=== PATIENT | male | born 1955 | race Caucasian/White ===

== ENCOUNTER → 2025-02-11 07:41 | Outpatient (REF) | payer MEDICARE, OTHER, SELFPAY | LOC: RCS 07:41 | PROVIDERS: ATTENDING PHYSICIAN Internal Medicine Cardiovascular Disease; FAMILY PHYSICIAN Family Medicine | DX: I25.10 Atherosclerotic heart disease of native coronary artery without angina pectoris (principal); R93.1 Abnormal findings on diagnostic imaging of heart and coronary circulation; E78.00 Pure hypercholesterolemia, unspecified | CPT/HCPCS: 93017; 93350 ==

== ENCOUNTER → 2025-02-18 09:33 | Outpatient (REF) | payer MEDICARE, OTHER, SELFPAY ==
[2025-02-18 10:20] LABS: % Basophils 1.2 % (0-2); % Eosinophils 6.2 % (0-6); % Immature Granulocytes 0.5 % (0-0.5); % Lymphocytes 22.4 % (20.5-51.1); % Neutrophils 61.7 % (42.2-75.2); Absolute Basophils 0.1 10^3/uL (0-0.2); Absolute Eosinophils 0.4 10^3/uL (0-0.7); Absolute Lymphocytes 1.5 10^3/uL (1.2-3.4); Absolute Monocytes 0.5 10^3/uL (0.1-0.6); Hematocrit 36.8 % (39.0-52.0); Hemoglobin 12.8 g/dL (13.0-18.0); Mean Corp Hgb Conc. 34.8 g/dL (33.0-37.0); Mean Corpuscular Hgb 30.6 pg (27.0-31.0); Mean Platelet Volume 12.2 fL (7.4-10.4); Nucleated Red Blood Cells % 0 % (-); Platelet Count 151 10^3/uL (130-400); Red Blood Cell Count 4.18 10^6/uL (4.70-6.10); Red Cell Dist. Width 11.9 % (11.5-14.5); White Blood Cell Count 6.5 10^3/uL (4.8-10.8)
[2025-02-18 10:42] LABS: ALT (SGPT) 25 U/L (0-50); AST (SGOT) 28 U/L (17-59); Albumin 4.7 g/dl (3.5-5.0); Alkaline Phosphatase 104 U/L (38-126); Blood Urea Nitrogen 17 mg/dl (9-20); Calcium 9.7 mg/dl (8.4-10.2); Carbon Dioxide 26 mmol/L (22-30); Chloride 106 mmol/L (98-107); Glucose 94 mg/dl (70-99); Potassium 5.1 mmol/L (3.5-5.1); Sodium 140 mmol/L (135-145); Total Bilirubin 0.6 mg/dl (0.2-1.3); Total Protein 7.2 g/dl (6.3-8.2); eGFR 58.73
== END ==
LOC: SDSPAT 09:33
PROVIDERS: ATTENDING PHYSICIAN Internal Medicine Interventional Cardiology; FAMILY PHYSICIAN Family Medicine; REFERRING PHYSICIAN Internal Medicine Cardiovascular Disease
DX: I25.10 Atherosclerotic heart disease of native coronary artery without angina pectoris (principal)
CPT/HCPCS: 36415; 80053; 85025; 93005

== ENCOUNTER 2025-02-19 06:23 | Day surgery (SDC) | payer MEDICARE, OTHER, SELFPAY ==
[2025-02-18 09:41] VITALS: BMI 31.1
[2025-02-19] VITALS (11 sets, daily range): BP systolic 132–166; BP diastolic 54–70
[2025-02-19] MEDS: LOW STRENGTH ASPIRIN 324 MG PO (07:17)
--- NOTE | 2025-02-19 09:24 | ITS.CL.CATH ---
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
Cardiac Catheterization
Procedure Report:
LEFT HEART CATHETERIZATION
Date of Procedure: February 19, 2025
Referring: Dr. Sea Medina
PROCEDURES:
1. Left heart catheterization with coronary and single-plane left ventriculography
INDICATION: This is a 69-year-old gentleman with a past medical history notable for hypertension and exertional chest discomfort. A CT scan was notable for an elevated coronary calcium score and a subsequent stress study was notable for significant
ST segment depression with the stress of exercise with possible anterior hypokinesis. He is now referred for coronary angiography. Patient states that he is experienced chest tightness for about 2 to 3 months and only during periods of physical
exertion. He denies any resting chest discomfort or change in anginal pattern
ACCESS: Right radial artery, 6 Spanish sheath
HEMODYNAMICS : (mmHg)
AO (s/d) : 136/64
LV (s/d) : 145/15
LVEDP : 29
CORONARY FINDINGS
DOMINANCE: Right
LEFT MAIN: 30% ostial narrowing with 70-75% mid to distal left main stenosis
LEFT ANTERIOR DESCENDING: The LAD is moderately calcified. There is proximal 20% stenosis. The remainder of the LAD is widely patent with only minor irregularities. The distal vessel wraps completely around the apex. The first diagonal branch
arises proximally
CIRCUMFLEX: The circumflex is a large-caliber vessel supplying a moderate-sized OM 1 and moderate to large OM 2. The continuation of the circumflex in the AV groove supplies a small posterolateral branch
RIGHT CORONARY ARTERY: The right coronary artery is a dominant vessel supplying a medium size PDA. Only minor irregularities are noted
VENTRICULOGRAPHY: Left ventriculography is performed in an ALFRED projection. The digital single-plane left ventricular ejection fraction is estimated at 65%. No regional wall motion abnormalities are noted
SEDATION: 26 minutes of procedural sedation was utilized. An independent medical device sales representative was present to assist with and help manage the patient's level of consciousness and physiologic status.
RADIATION SUMMARY: Fluoro Time (min): 3.1, Dose (mGy): 316.8, DAP (Gy.cm2) : 23.1
Closure Device: TR band
CONCLUSIONS
1. Significant left main coronary artery disease with good circumflex and LAD target for bypass grafting
2. Preserved LV systolic function
RECOMMENDATIONS
1. Consult CT surgery
Copy to: Dr. Sea Medina, Dr. Ganesh Hickey
== END 2025-02-19 12:00 | disposition home or self-care (01) ==
LOC: CATH 06:23
PROVIDERS: ATTENDING PHYSICIAN Internal Medicine Interventional Cardiology; FAMILY PHYSICIAN Family Medicine; OTHER PHYSICIAN Internal Medicine Cardiovascular Disease
DX: R07.89 Other chest pain (principal); I25.10 Atherosclerotic heart disease of native coronary artery without angina pectoris; I10 Essential (primary) hypertension; E78.5 Hyperlipidemia, unspecified; K21.9 Gastro-esophageal reflux disease without esophagitis; Z87.891 Personal history of nicotine dependence; Z82.49 Family history of ischemic heart disease and other diseases of the circulatory system; Z79.82 Long term (current) use of aspirin
CPT/HCPCS: 99152; 99153; C1894; 93458; Q9967

== ENCOUNTER 2025-03-29 04:35 | Inpatient (IN) | payer MEDICARE, OTHER, SELFPAY ==
[2025-03-18 12:33] VITALS: BMI 32.2
[2025-03-18 13:13] LABS: Hematocrit 38.0 % (39.0-52.0); Hemoglobin 13.3 g/dL (13.0-18.0); Mean Corp Hgb Conc. 35.0 g/dL (33.0-37.0); Mean Corpuscular Volume 88.0 fL (80.0-94.0); Platelet Count 142 10^3/uL (130-400); Red Cell Dist. Width 12.3 % (11.5-14.5)
[2025-03-18 13:18] LABS: Urine Character Clear (Clear)
[2025-03-18 13:27] LABS: INR 0.89; PT 12.6 Sec (11.4-14.6)
[2025-03-18 14:51] LABS: ALT (SGPT) 21 U/L (0-50); AST (SGOT) 25 U/L (17-59); Albumin 5.0 g/dl (3.5-5.0); Alkaline Phosphatase 76 U/L (38-126); Blood Urea Nitrogen 15 mg/dl (9-20); Calcium 9.9 mg/dl (8.4-10.2); Carbon Dioxide 29 mmol/L (22-30); Chloride 102 mmol/L (98-107); Estimated Creatinine Clearance 62 ml/min; Glucose 75 mg/dl (70-99); Potassium 4.9 mmol/L (3.5-5.1); Sodium 138 mmol/L (135-145); Total Protein 7.7 g/dl (6.3-8.2); eGFR 58.73
[2025-03-18 14:52] LABS: Glycohemoglobin (HgbA1c) 5.5 % (4.0-5.6)
--- NOTE | 2025-03-18 15:11 | CM ---
spoke to pt in PAT's, we discussed pre CABG teaching including sternal and driving restrictions. he is prev indep, lives alone in a 2 story homewith a first floor set up and no steps to enter. he has a cane and a walker at home to use if needed. he
has the cardiac educ book, soap and instructions. he is agreeable to a f/u visit from the ct transitional care nurses after dc. plan is for CABG 03/29, cm role explained and all questions answered.
[2025-03-29] VITALS (13 sets, daily range): BP systolic 89–123; BP diastolic 57–80; PULSE 2–85; BMI 30.6
[2025-03-29] MEDS: MAGNESIUM OXIDE 500 MG PO (05:26)
[2025-03-29] MEDS: LOPRESSOR 25 MG PO (05:26)
[2025-03-29] MEDS: PROTONIX 40 MG PO (05:26)
[2025-03-29] MEDS: BACTROBAN 2% OINTMENT 1 APPLIC NASAL ×2 (05:27→20:30)
--- NOTE | 2025-03-29 06:29 | W.CVOR.SURPR ---
CVOR Surgeon Immed Pre Op
-
I have examined this patient prior to performance of the scheduled procedure.
The patient's condition is unchanged from the time of the dictated/written History and
Physical and the patient is able to undergo the scheduled procedure.
CABG +/- MARINA E
[2025-03-29 07:36] LABS: ACT+ - POC 109 Seconds (82-134)
[2025-03-29 07:51] LABS: Urine Character Clear (Clear)
[2025-03-29 09:16] LABS: B.E. - POC -0.5 mmol/L; Glucose - POC 106 mg/dl (70-99); HCO3 - POC 24 mmol/L (21-28); Hematocrit - POC 28 % PCV (42-52); Hemodilution- POC No; Hemoglobin Calculated - POC 9.6; Ionized Calcium - POC 1.19 mmol/L (1.15-1.33); Lactate - POC 1.57 mmol/L (0.36-0.75); O2 Saturation %Calculated-POC 98.3 % (94-98); PCO2 - POC 40 mmHg (35-48); PO2 - POC 110 mmHg (83-108); Potassium - POC 3.9 mmol/L (3.5-5.1); Sodium - POC 139 mmol/L (136-145); Specimen Type - POC Arterial; pH - POC 7.39 (7.35-7.45)
--- NOTE | 2025-03-29 09:25 | CM ---
Reviewed chart. Mr. Celeste is in the operating room today. Prior to admission he resides alone in a two story home without any steps to enter. He has a first floor set up. Prior to admission he was independent with ambulation and adls. He
has a walker and single point cane. He has a prescription plan. Will need to see his functional level post surgery to see if he will have any skilled care needs. Medical work-up in progress. The discharge plan is to return home with a home visit
by the Transitional Care Nurse verses some level of rehab. if indicated when medically stable.
[2025-03-29 09:38] LABS: B.E. - POC 4.2 mmol/L; Glucose - POC 109 mg/dl (70-99); HCO3 - POC 29 mmol/L (21-28); Hematocrit - POC 27 % PCV (42-52); Hemodilution- POC Yes; Hemoglobin Calculated - POC 9.1; Ionized Calcium - POC 1.00 mmol/L (1.15-1.33); Lactate - POC 0.52 mmol/L (0.36-0.75); O2 Saturation %Calculated-POC 100.0 % (94-98); PCO2 - POC 42 mmHg (35-48); PO2 - POC 459 mmHg (83-108); POC Comment CPB; Potassium - POC 6.9 mmol/L (3.5-5.1); Sodium - POC 139 mmol/L (136-145); Specimen Type - POC Arterial; pH - POC 7.45 (7.35-7.45)
[2025-03-29 09:56] LABS: B.E. - POC 5.1 mmol/L; Glucose - POC 135 mg/dl (70-99); HCO3 - POC 29 mmol/L (21-28); Hematocrit - POC 27 % PCV (42-52); Hemodilution- POC Yes; Hemoglobin Calculated - POC 9.3; Ionized Calcium - POC 1.07 mmol/L (1.15-1.33); Lactate - POC 0.88 mmol/L (0.36-0.75); O2 Saturation %Calculated-POC 100.0 % (94-98); PCO2 - POC 41 mmHg (35-48); PO2 - POC 392 mmHg (83-108); POC Comment CPB; Potassium - POC 7.0 mmol/L (3.5-5.1); Sodium - POC 139 mmol/L (136-145); Specimen Type - POC Arterial; pH - POC 7.47 (7.35-7.45)
[2025-03-29 10:13] LABS: ACT+ - POC 883 Seconds (82-134)
[2025-03-29 10:16] LABS: B.E. - POC -2.6 mmol/L; Glucose - POC 126 mg/dl (70-99); HCO3 - POC 22 mmol/L (21-28); Hematocrit - POC 29 % PCV (42-52); Hemodilution- POC Yes; Hemoglobin Calculated - POC 9.7; Ionized Calcium - POC 0.99 mmol/L (1.15-1.33); Lactate - POC 0.85 mmol/L (0.36-0.75); O2 Saturation %Calculated-POC 100.0 % (94-98); PCO2 - POC 35 mmHg (35-48); PO2 - POC 407 mmHg (83-108); POC Comment WARM; Potassium - POC 6.4 mmol/L (3.5-5.1); Sodium - POC 143 mmol/L (136-145); Specimen Type - POC Arterial; pH - POC 7.40 (7.35-7.45)
[2025-03-29 10:22] LABS: ACT+ - POC 126 Seconds (82-134)
[2025-03-29 10:50] LABS: B.E. - POC -1.1 mmol/L; Glucose - POC 114 mg/dl (70-99); HCO3 - POC 24 mmol/L (21-28); Hematocrit - POC 27 % PCV (42-52); Hemodilution- POC Yes; Hemoglobin Calculated - POC 9.0; Ionized Calcium - POC 1.18 mmol/L (1.15-1.33); Lactate - POC 1.14 mmol/L (0.36-0.75); O2 Saturation %Calculated-POC 99.9 % (94-98); PCO2 - POC 42 mmHg (35-48); PO2 - POC 337 mmHg (83-108); POC Comment POST; Potassium - POC 5.6 mmol/L (3.5-5.1); Sodium - POC 145 mmol/L (136-145); Specimen Type - POC Arterial; pH - POC 7.37 (7.35-7.45)
--- NOTE | 2025-03-29 10:50 | W.PN.CT.SURG ---
Addendum entered and electronically signed by Dorian Swenson MD 03/29/25 11:18:
Procedure(s) Performed:
1. Standard Sternotomy with Aortic and Right Atrial Cannulation
2. Internal Mammary Artery Harvesting, Left
3. Coronary artery bypass grafting x 3 (In situ LOPEZ to LAD, Ao to RSVG to high diagonal, Ao to RSVG to largest OM graft/LPL)
4. Endoscopic vein harvesting of right lower extremity
5. Transesophageal echocardiography
6. Placement of Temporary Ventricular Pacing Wires
7. MARINA E (35mm clip, Serial #[id number])
Original Note:
CT Surgery Operative Note
-
CARDIAC SURGERY OPERATIVE REPORT
Preoperative Diagnosis: Multivessel Coronary Artery Disease with distal left main disease
Postoperative Diagnosis: Same
Procedure(s) Performed:
1. Standard Sternotomy with Aortic and Right Atrial Cannulation
2. Internal Mammary Artery Harvesting, Left
3. Coronary artery bypass grafting x 3 (In situ LOPEZ to LAD, Ao to RSVG to high diagonal, Ao to RSVG to largest OM graft/LPL)
4. Endoscopic vein harvesting of right lower extremity
5. Transesophageal echocardiography
6. Placement of Temporary Ventricular Pacing Wires
Date of Surgery: 03/29/2025
Comorbidities:
1. Multivessel coronary disease involving the distal left main
2. Hypertension
3. Hyperlipidemia
4. Morbidly obese with a BMI of 30.6
5. ADHD
6. Osteoarthritis
7. History of tobacco abuse, former smoker since 2021
8. Gout
9. History of hepatitis and Evaristo-Blount virus
10. Rheumatic fever as a child
Attending Surgeon: Dorian Swenson MD, MS
Assistants: Laury Quinteros PA-C (present and necessary to freezer assistant, endoscopic vein harvest, retraction, suction, exposure, suture management, and wound closure under my direction)
Anesthesiology: Delgado Moreno MD and Willis Alfonso CRNA
Scrub and Circulating RNs: Leeann Dewitt, RN, Chencho Coreas RN
Coatings Inspector: Jamila Brambila CCP
Anesthesia: GETA
EBL: per perfusion records
Products: none
CPB Time: 67 minutes
Aortic Cross Clamp Time: 54 minutes
Indication(s) for Procedures: This is a 69-year-old male with multivessel coronary disease involving the distal left main. He has been having some chest discomfort associate with fatigue and shortness of breath on exertion. Given his disease
pattern, he was offered surgical revascularization.
Conduit(s) Quality:
LOPEZ -excellent, skeletonized
RSVG -excellent, uniform with minimal varicosities
Target(s) Quality:
High diagonal-good sized target accounting of 2.0 mm probe easily, the distal margin of this vessel had disease and was unable to be probed into the LAD. The graft at the end had a mean flow 40 cc a minute with a pulsatile index of 2.8
OM -large essentially LPL branch, excellent target, mean flow of approximately 30 to cc a minute with a pulse index of 4.8
LAD -excellent sized target, mean flow of 20 cc a minute with a pulse index of 2.4
Findings: His left ventricular ejection fraction preoperatively was normal at 60% with no significant valve abnormalities. Following surgery his EF remained the same at 60% with no new regional wall motion abnormalities. The LOPEZ was harvested in a
skeletonized fashion. Following bypass grafting, test dose cardioplegia was given down each distal and confirmed patency and hemostasis. Flow probe assessment of each graft was performed at the end of the case and demonstrated all with excellent
mean flows and pulsatility indices. His left atrial appendage verified to be free of any thrombus or debris preoperatively and found to be totally occlusive postoperatively with no residual flow. He did not require any blood products and did not
require any inotropic support.
Description of Procedure: The patient was taken to the operating room. Their identity and procedure to be performed were verified and they were positioned supine on the operating table. Induction via general anesthesia with endotracheal intubation
was performed and central venous access and arterial monitoring were inserted. A preoperative transesophageal echocardiogram was performed to assess cardiac function and valvular function. The patient was then prepped and draped from chin to feet in
a sterile fashion. A preoperative time-out was performed with all members of the team present. A midline chest incision was performed along with median sternotomy. Simultaneous endoscopic access of the right lower extremity for saphenous vein
harvest was obtained along with administration of an initial 5,000 units of IV heparin. A RulTract sternal retractor was positioned to exposure the left internal mammary bed. The mammary was harvested and found to have good flow. A bulldog clamp was
applied to the distal end of the mammary after dividing it. It was wrapped in a papaverine soaked RayTec and replaced back into the left hemithorax. The RulTract was exchanged for a median sternal retractor. The innominate vein was isolated. Full
heparinization was given (a total of 50,000 units). We created a pericardial well. The aortic cannulation site was chosen where it was soft, pliable, and free of calcium. Cannulation was performed with an arterial cannula in the ascending aorta and
a triple-stage venous cannula through the right atrial appendage. The arterial cannula line had an appropriate bounce and correlating pressures with test dosing. Next, a root vent/antegrade cannula was inserted into the ascending aorta. The ACT was
confirmed to be over 400 and retrograde autologous priming was performed before commencing cardiopulmonary bypass. The pulmonary artery was away from the aorta to facilitate a clamp site. The aortic cross-clamp was placed after decreasing
the flow on the bypass and mean arterial pressure. A total of 1.2L initial dose of antegrade Del-Nido cardioplegia solution was given and planned for re-dosing every 75 minutes as necessary. There was rapid electro-mechanical arrest of the heart at
300 cc of cardioplegia. The left ventricle was observed for distention on echocardiogram and manual palpation. Cold slush was placed into a sponge and topically on the RV while we systemically cooled to 34 degrees centigrade. I did replace the
aortic clamp and redosed with additional 200 cc of cardioplegia as I felt the clamp was not occlusive. Regardless, we did achieve myocardial quiescence. Once fully rested the heart was rotated medially and the left atrial appendage was clipped
flush to the base.
I positioned the heart to expose the OM/LPL branch. A tolowa dee-ni' blade was used to expose the coronary and perform the arteriotomy. Coronary Ferrara scissors were used to enlarge the incision. The saphenous vein was trimmed and beveled to an appropriate
size. The distal anastomosis was performed using 7-0 prolene in an end-to-side fashion. Antegrade cardioplegia was administered into the graft. Appropriate hemostasis and flow were confirmed. The graft was measured for length to the aorta and cut.
A suitable site on the high diagonal which was intramyocardial. We dissected and prepared the distal target in a similar fashion. An end-to-side anastomosis was created with a 7-0 prolene. Antegrade cardioplegia was administered into the graft.
Appropriate hemostasis and flow were confirmed. The graft was measured for length to the aorta and cut. A suitable target on the mid/distal left anterior descending was identified. We dissected and prepared the distal target in a similar fashion. We
retrieved the LOPEZ from the chest and created a pericardial opening while being cognizant of the phrenic nerve to facilitate the course of the mammary. The distal end of the mammary was prepped and the underbelly was incised and enlarged with Ferrara
scissors. We verified orientation and length of the ALISSA and found brisk flow. An end-to-side anastomosis was created with a 7-0 prolene. We temporarily released the bulldog clamp on the mammary to inspect flow. Perfusion to the LAD territory was
visualized and hemostasis was confirmed. The bull clamp was replaced on the mammary. The heart was filled and the root was distended with antegrade cardioplegia to make final assessment of graft length and orientation. We created 2 aortotomies using
a #11 blade then a 4.0mm aortic punch. The proximal anastomoses were created in an end-to-side fashion using 6-0 prolene. At the the same time, we re-warmed to 36.5 degrees centigrade. The bulldog clamp was removed from the mammary. Temporary
bipolar ventricular pacing wires were placed on the base of the right ventricle. The patient was placed in a Trendelenburg position and flows on bypass were lowered. The aortic cross clamp was removed and flows were slowly brought back up. All
bypass grafts were inspected and were free from kinking or twisting. The distal and proximal anastomoses appeared hemostatic. Once transesophageal echocardiography appeared satisfactory for de-airing, the flows were temporarily lowered for root
vent removal. After verifying acceptable parameters, we initiated weaning from cardiopulmonary bypass. Once we were off cardiopulmonary bypass, the venous cannula was clamped and removed. A test dose of protamine was administered and the patient was
monitored for any adverse reaction before resuming protamine. Once half of the protamine dose was delivered, pump suckers were turned off and the systolic blood pressure was lowered for aortic decannulation. The aortic cannula was removed and
pursestrings were tied down. All cannulation sites were oversewn with a 4-0 prolene. The mammary bed was inspected and hemostasis was confirmed. Once the mediastinum was hemostatic, 19Fr Chuckie drain was placed in the left pleural cavity and two 24Fr
Chuckie drains were placed within the pericardium. The sternum was approximated with 4 #7 single and 3 #8 double stainless steel wires. Fascia was approximated with #1 vicryl suture. The subcutaneous, dermis and epidermis were closed in layers in a
running fashion. The skin wound was cleansed and dressed.
All instrument, sponge, and needle counts were confirmed to be correct x 2 at the end of the operation. The patient was transferred to the cardiac intensive care unit in critical but stable condition.
I, Dr. Dorian Swenson, was present, scrubbed for, and performed all critical elements of this procedure.
Dorian Swenson MD, MS
Cardiothoracic Surgeon
[facility]
This operative dictation was created using the [employer] dictation system. Please excuse any grammatical, typographical, or 'sound alike' errors
[2025-03-29 11:16] LABS: Glucose - Point of Care 118 mg/dl (70-99)
[2025-03-29] MEDS: ANCEF 10 IV ×2 (11:29)
[2025-03-29] MEDS: NOVOLOG FLEXPEN SC ×2 (11:29→15:43)
[2025-03-29 11:30] LABS: B.E. -2.9 mmol/L; HCO3 23.2 mmol/L (21-28); Hematocrit 29.1 % (39.0-52.0); Hemoglobin 10.4 g/dL (13.0-18.0); O2 Saturation % 99.7 % (94-98); PCO2 45 mmHg (35-48); PO2 106 mmHg (83-108); Platelet Count 109 10^3/uL (130-400); Potassium 5.5 mMOL/L (3.5-5.1); Sodium 137 mMOL/L (136-145)
[2025-03-29] MEDS: NSS 500 IV (11:30)
[2025-03-29] MEDS: CALCIUM GLUCONATE 100 IV ×2 (11:39→15:54)
[2025-03-29 11:46] LABS: INR 1.53; PT 18.7 Sec (11.4-14.6)
[2025-03-29 11:47] LABS: APTT 28.8 Sec (23.4-35.0)
[2025-03-29 11:49] LABS: Blood Urea Nitrogen 14 mg/dl (9-20); Estimated Creatinine Clearance 81 ml/min; Glucose 113 mg/dl (70-99); Magnesium 2.6 mg/dl (1.6-2.3)
--- NOTE | 2025-03-29 12:00 | PTCARENOTE ---
Patient received from CVOR at 1110; Sedated and intubated; NSR on monitor; VSS; Epicardial V wires present with settings VVI 50/5.0/5.0; +1 DP and +2 radial pulses present; Lungs diminished at bases; ETT size 8 positioned and secured at 24 cm right
lip; Ventilator settings SIMV 14/500/5/5 FiO2 40% - adjusted by RT at bedside following ABG results; CTx3 to -20 cm wall suction draining bloody drainage - no air leak, tidaling, or crepitus noted; Hypoactive BS; Nielsen catheter in place draining
clear, yellow urine; Sternal incision glued, approximated, and SUPERVISOR CAB, right groin puncture glued, approximated, and SUPERVISOR CAB, right leg incision wrapped in SUNITHA - CDI; Left A-line in place, SLIC present in right Cordis - all lines zeroed and leveled; #18
PIV present in left forearm; Levo, insulin, and precedex infusing - see nursing flowsheets for further details; iCal repleted x1; see nursing documentation for further details.
[2025-03-29 12:04] LABS: Glucose - Point of Care 168 mg/dl (70-99)
--- NOTE | 2025-03-29 12:12 | CON.INTV ---
Consultation
Consultation Request
Date/Time Consultation Requested: 03/29/2025
Date/Time Consultation Performed: 03/29/2025
Requesting Provider: Dr. Swenson
Performing Provider: Dr. Ajith Baker
Reason for Consultation: Status post coronary artery bypass
Medical History
-
History of Present Illness:
69-year-old man with hypertension, hyperlipidemia, obesity, history of tobacco abuse. Recently evaluated for unstable angina. Had a stress test in January 2025 that showed abnormality. Subsequently underwent cardiac catheterization. Cardiac cath
02/19/2025: Significant left main coronary disease with good targets. Preserved LVEF
CT surgery deemed the patient candidate for revascularization.
Coronary artery bypass underwent on 03/29/2025. Patient transferred to the critical care unit. Critical care team was consulted for postoperative management.
Patient is sedated, mechanical ventilation.
Records reviewed.
Currently comfortable mechanical ventilation settings
Past Medical History
Past Medical History: Other ( See assessment and plan)
Social History
Tobacco: Former Smoker (Quit about 4 years)
Alcohol: Occasional
Family History
Family History: CAD (Father)
Allergies / Home Medications
Allergies
Allergy/AdvReac Type Severity Reaction Status Date / Time
No Known Allergies Allergy Verified 03/15/25 13:02
Home Medications
�Medication �Instructions �Recorded �Confirmed �Last Taken �Type
amlodipine 5 mg tablet 5 mg PO DAILY 02/14/25 03/29/25 03/26/25 History
atorvastatin 80 mg tablet 80 mg PO DAILY 02/14/25 03/29/25 03/28/25 History
coenzyme Q10 100 mg capsule 100 mg PO DAILY 02/14/25 03/29/25 03/22/25 History
(CoQ-10)
multivitamin 1 tab PO DAILY 02/14/25 03/29/25 03/22/25 History
omega 8-qgx-lpv-fish oil 1,000 mg 1 cap PO DAILY 02/14/25 03/29/25 03/22/25 History
(120 mg-180 mg) capsule (Fish Oil)
Joint Dynamic Suppl Cap 1 cap PO DAILY 02/19/25 03/29/25 03/22/25 History
omeprazole 20 mg capsule,delayed 20 mg PO DAILY 02/19/25 03/29/25 03/28/25 History
release
aspirin 325 mg tablet 325 mg PO DAILY 03/15/25 03/29/25 03/27/25 History
turmeric-herbal complex no.278 1 cap PO DAILY 03/15/25 03/29/25 03/22/25 History
valsartan 80 mg tablet 80 mg PO DAILY 03/15/25 03/29/25 03/26/25 History
Review of Systems
-
Unable to Obtain full review of systems at this time due to: Patient Intubation
Vitals / Labs / Diagnostic Testing
Vital Signs
Temp Pulse Resp BP Pulse Ox
95.2 F L 66 16 120/80 97
03/29/25 12:00 03/29/25 12:00 03/29/25 12:00 03/29/25 12:00 03/29/25 12:00
Lab Data
03/29/25 11:15
Laboratory Results
03/29/25
11:15
PT 18.7 H
INR 1.53
APTT 28.8
pH 7.32 L
pCO2 45
pO2 106
HCO3 23.2
O2 Delivery Level
Diagnostic Testing:
Physical Exam
-
HEENT: Normocephalic and Other (ET tube in place without secretion)
Cardiovascular: S1/S2
Respiratory: Clear
GI: Soft and Non Distended
Neurology: Other (Sedated on mechanical ventilation)
Skin: Warm
General: Comfortable
Assessment
-
69-year-old man with past medical history noted, admitted for coronary artery bypass. Surgery underwent on 03/29/2025 without complications. Currently in the critical care unit, we were consulted for postoperative management.
Status postcoronary artery bypass 03/29/2025-Dr. Swenson
Postoperative mechanical ventilation
Postoperative anemia
Conditions present prior admission:
Hyperlipidemia
Hypertension
Obesity
History of tobacco abuse quitting about 4 years ago
GERD
Vitiligo
ADHD
Former smoker
Low-dose CT 09/14/2022-negative for lung nodules.
Assessment and plan:
He is doing well postop-currently on mechanical ventilation and appears comfortable.
ABG reviewed: Adequate oxygenation and ventilation.
Continue SIMV mode with no change
Spontaneous breathing trial per protocol once sedation wears off.
Anemia noted-no evidence of acute bleeding
Follow H&H serially
Hemodynamics -acceptable
Normal renal function
Adequate urinary output
Will follow arterial line a PA catheter hemodynamics
Chest tube with no excessive drainage-no air leak.
Chest x-ray reviewed 03/29/2025: With no pneumothorax or fluid collections.
Remain nothing by mouth
Head of the bed elevation
Glycemic control per protocol
DVT prophylaxis when safe from the surgical perspective.
Critical care statement: A total of 32 minutes of critical care time was provided for this patient today. This includes management of unstable vital signs, evaluation of the patient at bedside, reviewing the patient's pertinent medical records
including ventilator settings, arterial blood gases, radiographs, microbiology, laboratory evaluations and discussion with primary team, critical care nursing, and respiratory therapy.
--- NOTE | 2025-03-29 12:47 | W.PN.CARDCBS ---
Addendum entered and electronically signed by Sea Sabillon MD 03/29/25 15:21:
Attending addendum: Patient seen and examined postoperatively CABG with LOPEZ-LAD, SVG-D, SVG-OM. He remains intubated and sedated. Weaning pressors as tolerated. ECG reviewed.
Original Note:
Today's Communication / Plan
-
Continue post-op care
Impression / Plan
-
PCP: Dr. Hickey
Cardiology: Dr. CHRISTIAN Medina
Impression:
CAD
s/p CABG x 3 (LOPEZ to LAD, RSVG to high diagonal, RSVG to largest OM graft/LPL), MARINA clip 03/29/2025
Hypertension
Hyperlipidemia
h/o gout
Former tobacco abuse
GERD
Plan:
-Noted to have MV CAD with significant left main disease by cardiac catheterization 02/19/2025. s/p CABG x 3 (In situ LOPEZ to LAD, Ao to RSVG to high diagonal, Ao to RSVG to largest OM graft/LPL) 03/29/[address] Swenson
-Seen postoperatively. Remains intubated and sedated, but doing well.
-BP stable off levo. Precedex being weaned.
-Postop EKG reviewed. SR, overall stable compared to prior.
-Overall stable on telemetry without arrhythmia
-Postop hemoglobin stable at 10.4. Continue to follow. No blood products given intra-op.
-K 5.5. Continue to follow
-Continue aspirin, Plavix, and statin.
-Heart rate stable. Continue amiodarone and metoprolol
-Per op report, at the end of procedure his MARINA was verified to be free of any thrombus or debris and was found be totally occlusive with no residual flow.
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
Subjective
Date of Service: March 29, 2025
Remains intubated, sedated.
Objective
Labs:
03/29/25 11:15
Labs
Hgb 10.4 g/dL (13.0-18.0) L 03/29/25 11:15
Hct 29.1 % (39.0-52.0) L 03/29/25 11:15
Plt Count 109 10^3/uL (130-400) L 03/29/25 11:15
PT 18.7 Sec (11.4-14.6) H 03/29/25 11:15
INR 1.53 03/29/25 11:15
APTT 28.8 Sec (23.4-35.0) 03/29/25 11:15
Sodium 138 mmol/L (135-145) 03/18/25 12:43
Potassium 4.9 mmol/L (3.5-5.1) 03/18/25 12:43
BUN 14 mg/dl (9-20) 03/29/25 11:15
Creatinine 1.0 mg/dL (0.7-1.3) 03/29/25 11:15
Glucose 113 mg/dl (70-99) H 03/29/25 11:15
Vital Signs and I&O:
Vital Signs
Temp Pulse Resp BP Pulse Ox
95.2 F L 66 16 120/80 97
03/29/25 12:00 03/29/25 12:00 03/29/25 12:00 03/29/25 12:00 03/29/25 12:00
Vital Signs
Temp Pulse Resp BP Pulse Ox
95.2 F L 66 16 120/80 97
03/29/25 12:00 03/29/25 12:00 03/29/25 12:00 03/29/25 12:00 03/29/25 12:00
Intake & Output
03/27/25 03/28/25 03/29/25 03/30/25
06:59 06:59 06:59 06:59
Intake Total 182.3 / 182.3
Output Total 610 / 610
Balance -427.7 / -427.7
Physical Exam
Physical Exam
GEN: No distress, intubated
HEENT: mmm
LUNGS: CTA anterolaterally, no wheezes/rales
CV: Reg, S1/S2, + rub
EXT: No clubbing, cyanosis, or edema
SKIN: Warm, dry, no rash
[2025-03-29 13:05] LABS: Glucose - Point of Care 127 mg/dl (70-99)
[2025-03-29] MEDS: TYLENOL PO ×2 (13:05→22:25)
--- NOTE | 2025-03-29 13:25 | PTCARENOTE ---
RT in room and patient placed on CPAP breathing trial at 1325. ABG's due at 1355
[2025-03-29 14:11] LABS: Glucose - Point of Care 112 mg/dl (70-99)
[2025-03-29] MEDS: ZOFRAN 4 MG IV (14:21)
[2025-03-29 14:49] LABS: B.E. - POC -0.7 mmol/L; Blood Urea Nitrogen - POC 14 mg/dl (3-120); Chloride - POC 108 mmol/L (96-111); Creatinine - POC 1.13 mg/dl (0.3-1.0); Glucose - POC 121 mg/dl (70-99); HCO3 - POC 22 mmol/L (21-28); Hematocrit - POC 31 % PCV (42-52); Hemodilution- POC Yes; Hemoglobin Calculated - POC 10.6; Ionized Calcium - POC 1.14 mmol/L (1.15-1.33); Lactate - POC 2.99 mmol/L (0.36-0.75); O2 Saturation %Calculated-POC 99.6 % (94-98); PCO2 - POC 30 mmHg (35-48); PO2 - POC 164 mmHg (83-108); Potassium - POC 3.7 mmol/L (3.5-5.1); Sodium - POC 145 mmol/L (136-145); Specimen Type - POC Arterial; pH - POC 7.48 (7.35-7.45)
[2025-03-29 15:04] LABS: Glucose - Point of Care 118 mg/dl (70-99)
--- NOTE | 2025-03-29 15:24 | PTCARENOTE ---
Patient failed 1st CPAP breathing trial - with frequent apnea periods in last 10 minutes of trial and placed back on SIMV at 1407; Patient vomited bile and coughed up yellow, thick mucous at 1418 - PRN IV Zofran given and patient suctioned
vigorously; KUNAL Lutz notified and aware regarding nausea/vomiting episode - patient placed back on CPAP trial at 1433 as per CVNP; [facility] ABG's reviewed with KUNAL Lutz at bedside following 2nd CPAP trial; RT at bedside; Patient extubated at
1449 and placed on 6L NC; Shortly afterwards, patient with multiple episodes of apnea and SpO2 desaturating to 64-82%; KUNAL Lutz notified and patient placed on BiPAP 6L 10/5 by RT at bedside; ABG ordered following initiation of BiPAP
[2025-03-29] MEDS: NEURONTIN PO (15:42)
[2025-03-29] MEDS: PACERONE PO (15:42)
[2025-03-29 15:44] LABS: B.E. -1.7 mmol/L; HCO3 23.7 mmol/L (21-28); O2 Saturation % 100.0 % (94-98); PCO2 42 mmHg (35-48); PO2 177 mmHg (83-108); Potassium 4.0 mMOL/L (3.5-5.1); Sodium 139 mMOL/L (136-145)
[2025-03-29] MEDS: ANCEF 5 IV (16:04)
[2025-03-29 16:05] LABS: Glucose - Point of Care 112 mg/dl (70-99)
[2025-03-29 16:06] LABS: Hematocrit 30.0 % (39.0-52.0); Hemoglobin 10.8 g/dL (13.0-18.0); Platelet Count 155 10^3/uL (130-400)
[2025-03-29] MEDS: LOW STRENGTH ASPIRIN 81 MG PO (16:16)
[2025-03-29 18:09] LABS: Glucose - Point of Care 85 mg/dl (70-99)
[2025-03-29] MEDS: OFIRMEV 100 IV (18:33)
--- NOTE | 2025-03-29 18:38 | PTCARENOTE ---
Levo infusion weaned off at 1620; iCal repleted x1 following ABG results on BiPAP; BiPAP transitioned to 6L NC - SpO2 91-97%; IS 2000 ml; IV Ofirmev ordered and given for pain
[2025-03-29 19:59] LABS: Glucose - Point of Care 147 mg/dl (70-99)
[2025-03-29] MEDS: SENOKOT-S 1 TABLET PO (20:30)
--- NOTE | 2025-03-29 20:38 | PTCARENOTE ---
Assumed care of patient of dayshift RN. Walking rounds completed. Pt resting in bed s/p CVOR today. SR on the tele monitor. HR 70s-80. Temporary epicardial v-wire intact and set to backup of 50/5/5. BP 110's-130/50s. Cardene infusion initiated to
keep SBPs 90-130. CVP ~6-10. Palpable radial pulses. DP pulses weak on palpation. Pt on 6L NC. POX 90-93%. Pt w/ CTx3 - L pleural and mediastinal x2. No airleaks noted at this time. Lung sounds diminished in B/L bases. Deep breathing encouraged.
Abdomen nontender. Hypoactive BS. Nielsen catheter intact and draining yellow urine. Pt tolerating ice chips. Right groin puncture intact and ENTRY LEVEL SALES REPRESENTATIVE. Sternal incision approximated and ENTRY LEVEL SALES REPRESENTATIVE. Right leg SVG site intact and covered w/ SUNITHA wrap. Right IJ
cordis w/ SLIC and left radial a-line intact - all lines leveled/zeroed/flushed. Pt denies significant pain at this time. Glycemic protocol followed. See worklist for full nursing assessment and interventions. Call chaidez within reach.
[2025-03-29 22:10] LABS: Glucose - Point of Care 109 mg/dl (70-99)
[2025-03-29] MEDS: PACERONE 200 MG PO (22:11)
[2025-03-29] MEDS: NEURONTIN 100 MG PO (22:11)
[2025-03-29 23:53] LABS: Glucose - Point of Care 108 mg/dl (70-99)
[2025-03-30] VITALS (19 sets, daily range): BP systolic 89–153; BP diastolic 57–86; PULSE 78; O2SAT 99–100; BMI 31.7
--- NOTE | 2025-03-30 | PTCARENOTE ---
No acute changes in assessment. Pt remains SR on the tele monitor. Temporary epicardial v-wire unchanged. HR 70s. BP 100-130/50-60s. Cardene titrated as appropriate to keep SBP 90-130. CVP~7. Pt 99% on [address] x3 assessment unchanged. Nielsen
catheter intact and draining yellow urine. Left radial a-line and right IJ cordis w/ SLIC maintained - all lines leveled/zeroed/flushed. Glycemic protocol followed. No c/o pain or nausea at this time. Call chaidez within reach.
[2025-03-30] MEDS: ROXICODONE 5 MG PO ×2 (00:55→19:34)
[2025-03-30] MEDS: ANCEF 5 IV ×2 (00:55→08:19)
[2025-03-30] MEDS: CARDENE 200 IV (01:13)
[2025-03-30] MEDS: LOPRESSOR 12.5 MG PO (01:31)
--- NOTE | 2025-03-30 01:38 | W.PN.CT ---
Today's Communication / Plan
-
POD #1
-Hemodynamically stable overnight
-BP goal 90-130's -> SBP 130's on 7.5-10 Cardene. 12.5 mg BB given around 0130 with no response. Switched to Nitro, Cardene weaned off.
-Keep arterial line until off Nitro
-D/C ocasio
-ABLA, monitor H & H
-Cont ASA 81, Lipitor 80, Plavix 75, Lopressor 12.5 mg Q12 (may need to increase)
-Diuresis per attending physician
-Transition Insulin gtt later this afternoon
-Mediastinal CT 80 overnight 300 cc since surgery, Pleural CT 15 overnight, 60 cc since surgery. Discuss removal of pleural chest tubes with attending.
-Continue current level of care, deline when off antihypertensive gtts.
Assessment / Plan
-
s/p CABG x3 (LOPEZ-LAD, SVG-Diag, SVG-OM), LAAE #[address] Dorian Swenson MD. on 03/29/25
-MV CAD
-HTN/HLD
-H/o Gout
-Former tobacco abuse since 2021
-ADHD
-GERD
-Hepatitis EBV 1973
-H/o rheumatoid fever as a child
-Morbidly obese with BMI 30.6
-Osteoarthritis
-Post operative acute blood loss anemia
-Post operative hyperkalemia-resolved
-Post operative emesis with extubation
Discussed patient care with: Cardiology, Nursing, Respiratory Therapy, Pharmacy and Care Team
Subjective
Procedure
s/p CABG x3 (LOPEZ-LAD, SVG-Diag, SVG-OM), LAAE #[address] Dorian Swenson MD. on 03/29/25
-
Date of Service: March 30, 2025
Objective Data
-
PT 18.7 Sec (11.4-14.6) H 03/29/25 11:15
INR 1.53 03/29/25 11:15
APTT 28.8 Sec (23.4-35.0) 03/29/25 11:15
Vital Signs
Vital Signs
Temp Pulse Resp BP Pulse Ox
100.1 F 78 14 116/57 98
03/30/25 01:00 03/30/25 01:00 03/30/25 01:00 03/30/25 01:00 03/30/25 01:00
CT Intake/Output/Weight
03/29/25 03/29/25 03/30/25
06:59 18:59 06:59
Intake Total 458.1 / 611.9 153.8 / 611.9
Output Total 1405 / 1860 455 / 1860
Balance -946.9 / -1248.1 -301.2 / -1248.1
SaO2: 98 (6 L NC )
Physical Exam
-
General: AOx3
Cardiovascular: Regular rate & rhythm (SR (75 bmp) )
Respiratory: Clear
Sternum: Stable
Incision: Clean, Dry and Intact
Extremities: Other (Trace edema R > L )
Data Reviewed
-
Lab Results: Results Reviewed
Medications: Active Meds Reviewed
Chest X-Ray: Image Reviewed
ECG: Image Reviewed
--- NOTE | 2025-03-30 01:39 | PTCARENOTE ---
Pt BPs remain >130 despite titrating up Cardene dose. CT PA notified. 12.5 Lopressor given - see OCT.
[2025-03-30 02:04] LABS: Glucose - Point of Care 113 mg/dl (70-99)
[2025-03-30] MEDS: NITROGLYCERIN PREMIX 250 IV (02:08)
[2025-03-30 03:23] LABS: Hematocrit 26.6 % (39.0-52.0); Hemoglobin 9.7 g/dL (13.0-18.0); Mean Corp Hgb Conc. 36.5 g/dL (33.0-37.0); Mean Corpuscular Volume 84.7 fL (80.0-94.0); Platelet Count 124 10^3/uL (130-400); Red Cell Dist. Width 12.6 % (11.5-14.5)
[2025-03-30] MEDS: DILAUDID 0.25 MG IV (03:31)
[2025-03-30 03:49] LABS: Blood Urea Nitrogen 24 mg/dl (9-20); Calcium 8.8 mg/dl (8.4-10.2); Carbon Dioxide 24 mmol/L (22-30); Chloride 112 mmol/L (98-107); Estimated Creatinine Clearance 63 ml/min; Glucose 106 mg/dl (70-99); Magnesium 2.2 mg/dl (1.6-2.3); Potassium 4.4 mmol/L (3.5-5.1); Sodium 139 mmol/L (135-145); eGFR 58.73
[2025-03-30 04:04] LABS: Glucose - Point of Care 112 mg/dl (70-99)
[2025-03-30] MEDS: LOPRESSOR 5 MG IV (04:28)
--- NOTE | 2025-03-30 04:40 | PTCARENOTE ---
Pt remains SR on the tele monitor. HR 70s. Cuff BPs lower than arterial BPs. PA aware. Nitro added to keep SBP's <130 and 5 mg IV Lopressor - see MAR. CVP~7. Pt is 98% on 6 L NC. CTx3 assessment unchanged. Nielsen catheter intact and draining yellow
urine. All surgical sites stable. Right IJ cordis w/ slic and left radial a-line maintained - lines leveled/zeroed/flushed. Glycemic protocol followed. Call chaidez within reach.
[2025-03-30] MEDS: TYLENOL 1000 MG PO ×3 (05:30→21:56)
[2025-03-30 06:02] LABS: Glucose - Point of Care 110 mg/dl (70-99)
--- NOTE | 2025-03-30 07:30 | PTCARENOTE ---
Patient received from third shift lieutenant RN; Sedated and intubated; NSR with occasional V-pacing on monitor; VSS; Epicardial V wires present with settings VVI 50/5.0/5.0; +2 DP and radial pulses present; Lungs with inspiratory wheeze throughout right side
- PRN albuterol given by RT; CTx3 to -20 cm wall suction draining bloody drainage - no air leak, tidaling, or crepitus noted; Hypoactive BS; Due to void; Sternal incision glued, approximated, and JOSY, right groin puncture glued, approximated, and
RESOURCE MANAGER, right leg incision wrapped in SUNITHA - CDI; Left A-line in place, SLIC present in right Cordis - all lines zeroed and leveled; #18 PIV present in left forearm; Insulin infusing and nitroglycerin turned off - see nursing flowsheets for further
details; see nursing documentation for further details.
[2025-03-30 08:05] LABS: Glucose - Point of Care 118 mg/dl (70-99)
[2025-03-30] MEDS: LOPRESSOR 25 MG PO ×2 (08:18→19:34)
[2025-03-30] MEDS: MAGNESIUM OXIDE 500 MG PO ×2 (08:18→19:34)
[2025-03-30] MEDS: PACERONE 200 MG PO ×3 (08:18→21:56)
[2025-03-30] MEDS: LIPITOR 80 MG PO (08:18)
[2025-03-30] MEDS: SENOKOT-S 1 TABLET PO ×2 (08:18→19:34)
[2025-03-30] MEDS: PLAVIX 75 MG PO (08:18)
[2025-03-30] MEDS: LIDOCAINE 4% PATCH TOPICAL (08:19)
[2025-03-30] MEDS: NEURONTIN 100 MG PO ×3 (08:19→21:56)
[2025-03-30] MEDS: LOW STRENGTH ASPIRIN 81 MG PO (08:19)
[2025-03-30] MEDS: PROTONIX 40 MG PO (08:19)
[2025-03-30] MEDS: BACTROBAN 2% OINTMENT 1 APPLIC NASAL ×2 (08:19→19:35)
[2025-03-30] MEDS: NOVOLOG FLEXPEN 4 UNITS SC (08:47)
[2025-03-30 09:04] LABS: Hepatitis C Antibody Negative (Negative)
--- NOTE | 2025-03-30 09:41 | W.PN.INTV ---
Today's Communication / Plan
Recommendations
- Wean IV insulin per protocol
- Incentive spirometry
- Quality Checker service will sign off once patient transferred out of CVICU
Assessment
-
69-year-old man with past medical history noted, admitted for coronary artery bypass. Surgery underwent on 03/29/2025 without complications. Currently in the critical care unit, we were consulted for postoperative management.
Status postcoronary artery bypass 03/29/2025-Dr. Swenson
Postoperative mechanical ventilation
Postoperative anemia
Conditions present prior admission:
Hyperlipidemia
Hypertension
Obesity
History of tobacco abuse quitting about 4 years ago
GERD
Vitiligo
ADHD
Former smoker
Low-dose CT 09/14/2022-negative for lung nodules.
Assessment and plan:
POD day #2
He is doing well postop-currently extubated, on room air, SpO2 96%
Encouraged IS, activity as tolerated
Anemia noted-no evidence of acute bleeding
Follow H&H serially, slight drift noted post op
Hemodynamics -acceptable, off all pressors
Normal renal function
Chest tube with no excessive drainage-no air leak.
Chest x-ray reviewed 03/30/2025: Unremarkable
Glycemic control per protocol, on insulin infusion for now, anticipate transition to s.c. later today
Patient gets yearly LDCT with his primary care provider, encouraged him to continue to follow. No pulmonary symptoms, follow up with Pulm out patient as needed.
DVT prophylaxis when safe from the surgical perspective.
Critical care statement: A total of 35 minutes of critical care time was provided for this patient today. This includes management of unstable vital signs, evaluation of the patient at bedside, reviewing the patient's pertinent medical records
including ventilator settings, arterial blood gases, radiographs, microbiology, laboratory evaluations and discussion with primary team, critical care nursing, and respiratory therapy.
Subjective Dataa
Subjective Data
Date of Service:
Date of Service: March 30, 2025
Subjective:
Patient comfortably walking in the room without any distress.
Review of Systems
Genitourinary: Other (No new symptoms reported.)
Objective Data
Data Reviewed
Vital Signs / I&O / Oxygen:
Vital Signs
Temp Pulse Resp BP Pulse Ox
98.1 F 67 16 109/65 97
03/30/25 08:00 03/30/25 08:43 03/30/25 08:43 03/30/25 08:00 03/30/25 08:43
Intake and Output
03/29/25 03/30/25 03/31/25
06:59 06:59 06:59
Intake Total 971.9 / 998.0 48.4 / 48.4
Output Total 2140 / 2175 35 / 35
Balance -1168.1 / -1177.0 13.4 / 13.4
SaO2 [CPAP/PSV] 100
SaO2 [SIMV] 100
SaO2 97
Nasal Cannula flow liters per 4
minute
Physical Exam
General: Comfortable
HEENT: Normocephalic
Cardiovascular: S1-S2 and Peripheral Edema (Trace pedal edema)
Respiratory: Clear
GI: Soft and Non Distended
Neurology: Awake and Alert
Skin: Warm
Labs/Micro/Reports
Lab Data
03/30/25 03:06
03/30/25 03:06
Laboratory Results
03/29/25 03/29/25
11:15 15:34
PT 18.7 H
INR 1.53
APTT 28.8
pH 7.32 L 7.36
pCO2 45 42
pO2 106 177 H
HCO3 23.2 23.7
O2 Delivery Level
[2025-03-30 11:10] LABS: Glucose - Point of Care 124 mg/dl (70-99)
--- NOTE | 2025-03-30 11:46 | W.PN.ANS.POP ---
Anesthesia Post Operative
- Anesthesia Post Op Note
Vital Signs Stable-See Nursing Note: Yes
Airway Patent: Yes
Adequate Pain Control: Yes
Change in Mental Status: No
Current Postoperative Nausea & Vomiting: No
Anesthesia Complications: No
General Anesthetic Recall: No
Unplanned Admission: No
Post Op Hydration Adequate: Yes
[2025-03-30] MEDS: NSS IV (11:55)
--- NOTE | 2025-03-30 12:04 | PTCARENOTE ---
SLIC and left radial A-line removed at bedside by RN; RIJ Cordis cleansed with CHG and redressed by RN; Left pleural chest tube removed at bedside by RN - VSS and no complications noted; Oxygen weaned to room air - SpO2 92-97%; Patient ambulating in
hallways with cardiac rehab; Insulin drip discontinued
[2025-03-30] MEDS: FERRLECIT 110 MG IV (13:50)
--- NOTE | 2025-03-30 15:57 | W.PN.CARDCBS ---
Today's Communication / Plan
-
General: Well developed, well nourished in NAD.
Neck: Right IJ catheter in place
Heart: Distant heart sounds with pericardial rub
Lungs: Coarse anterior breath sounds chest tube in place
Extremities: And trace edema noted
Neuro: Grossly nonfocal, awake, alert and oriented x3.
Impression / Plan
-
PCP: Dr. Hickey
Cardiology: Dr. CHRISTIAN Medina
Impression:
CAD
s/p CABG x 3 (LOPEZ to LAD, RSVG to high diagonal, RSVG to largest OM graft/LPL), MARINA clip 03/29/2025
Hypertension
Hyperlipidemia
h/o gout
Former tobacco abuse
GERD
Plan:
-He is postop day 1. Noted to have MV CAD with significant left main disease by cardiac catheterization 02/19/2025. s/p CABG x 3 (In situ LOPEZ to LAD, Ao to RSVG to high diagonal, Ao to RSVG to largest OM graft/LPL) 03/29/[address] Swenson
-He is doing well. He is off of pressors. He is sitting and conversant in the bed. Continue usual postop care.
-EKG is stable personally reviewed by me. Some diffuse ST elevations noted on the monitor which may be consistent with postop pericarditis. No significant symptoms.
-Overall stable on telemetry without arrhythmia
-Continue aspirin, Plavix, and statin.
-Continue amiodarone and metoprolol
-Per op report, at the end of procedure his MARINA was verified to be free of any thrombus or debris and was found be totally occlusive with no residual flow.
Progress Note - Gunner'S Mate G
Subjective
Date of Service: March 30, 2025
He is a bit sore but no other complaints.
Objective
Labs:
03/30/25 03:06
03/30/25 03:06
Labs
Hgb 9.7 g/dL (13.0-18.0) L 03/30/25 03:06
Hct 26.6 % (39.0-52.0) L 03/30/25 03:06
Plt Count 124 10^3/uL (130-400) L 03/30/25 03:06
PT 18.7 Sec (11.4-14.6) H 03/29/25 11:15
INR 1.53 03/29/25 11:15
APTT 28.8 Sec (23.4-35.0) 03/29/25 11:15
Sodium 139 mmol/L (135-145) 03/30/25 03:06
Potassium 4.4 mmol/L (3.5-5.1) 03/30/25 03:06
BUN 24 mg/dl (9-20) H 03/30/25 03:06
Creatinine 1.3 mg/dL (0.7-1.3) 03/30/25 03:06
Glucose 106 mg/dl (70-99) H 03/30/25 03:06
Vital Signs and I&O:
Vital Signs
Temp Pulse Resp BP Pulse Ox
98.4 F 88 16 114/57 95
03/30/25 12:00 03/30/25 15:00 03/30/25 12:00 03/30/25 12:00 03/30/25 12:00
Vital Signs
Temp Pulse Resp BP Pulse Ox
98.4 F 88 16 114/57 95
03/30/25 12:00 03/30/25 15:00 03/30/25 12:00 03/30/25 12:00 03/30/25 12:00
Intake & Output
03/28/25 03/29/25 03/30/25 03/31/25
06:59 06:59 06:59 06:59
Intake Total 971.9 / 998.0 1229.3 / 1229.3
Output Total 2140 / 2175 160 / 160
Balance -1168.1 / -1177.0 1069.3 / 1069.3
--- NOTE | 2025-03-30 16:49 | PTCARENOTE ---
Patient bladder scanned for 247 ml; Afterwards patient able to urinate moderate amount of clear, yellow urine in bathroom; Patient ambulating in hallways with RN; Patient resting comfortably in bed
[2025-03-30] MEDS: REMOVE LIDOCAINE PATCH REMOVE (19:39)
--- NOTE | 2025-03-30 20:09 | PTCARENOTE ---
Assumed care of pt from RN. Walking rounds completed. Pt OOB to chair at this time. SR on the tele monitor. HR 70s. +Rub. Temporary epicardial V-wire set to backup 50/5/5. BP stable. Trace B/L LE and +1 B/L UE edema present. B/L radial
pulses palpable. B/L DP pulses weak on palpation. Pt on RA. POX 91%. Mediastinal CTx2 to -20 suction, no air-leak noted, and output WNL. Lung sounds diminished in the base B/L. Deep breathing and IS encouraged. Abdomen round. +BSx4. Pt voided once
post Nielsen removal on . No urge to void at this time. All surgical sites stable. Right IJ cordis and left PIV x1 intact. See MAR for pain medication administration. See worklsit for full nursing assessment and interventions. Call chaidez within
reach.
[2025-03-31] VITALS (14 sets, daily range): BP systolic 125–155; BP diastolic 59–81; BMI 31.2
--- NOTE | 2025-03-31 00:07 | PTCARENOTE ---
No acute changes in assessment. Pt is SR on the tele monitor. HR 70s. Temporary epicardial v-wire intact. BP stable - slightly elevated. 155/80. Pt is 96% on 2 L NC. Mediastinal CTx2 assessment unchanged. All surgical sites stable. Pt repositioned
in bed. Denies significant pain at this time. Call chaidez within reach.
[2025-03-31] MEDS: ROXICODONE 5 MG PO (04:32)
[2025-03-31] MEDS: NSS 500 IV (04:33)
[2025-03-31 04:37] LABS: Hematocrit 25.1 % (39.0-52.0); Hemoglobin 8.8 g/dL (13.0-18.0); Mean Corp Hgb Conc. 35.1 g/dL (33.0-37.0); Mean Corpuscular Volume 87.5 fL (80.0-94.0); Platelet Count 113 10^3/uL (130-400); Red Cell Dist. Width 12.7 % (11.5-14.5)
--- NOTE | 2025-03-31 04:41 | PTCARENOTE ---
No acute changes in assessment. Pt remains SR on the tele monitor. V-wire intact. Pt is on 2 L NC. POX 95-98%. CTx2 assessment unchanged. Pt voiding w/o issue. OOBx1 to void as needed. Pt repositioned in bed for comfort. Labs drawn and sent. Call
chaidez within reach.
[2025-03-31 04:55] LABS: Blood Urea Nitrogen 27 mg/dl (9-20); Calcium 8.4 mg/dl (8.4-10.2); Carbon Dioxide 26 mmol/L (22-30); Chloride 105 mmol/L (98-107); Estimated Creatinine Clearance 64 ml/min; Glucose 123 mg/dl (70-99); Magnesium 2.1 mg/dl (1.6-2.3); Potassium 4.4 mmol/L (3.5-5.1); Sodium 134 mmol/L (135-145); eGFR 58.73
--- NOTE | 2025-03-31 05:55 | W.PN.CT ---
Today's Communication / Plan
-
POD #2
-diuresed yesterday, de-lined. UOP 1800 + voids, await AM weight
-Cont ASA 81, Lipitor 80, Plavix 75, Lopressor increased to 25 mg
-CTs Med 140/340 cc out in 12/24 hrs, Pl CTs out
-multimodal pain management
-OOB/IS use reinforced
Assessment / Plan
-
s/p CABG x3 (LOPEZ-LAD, SVG-Diag, SVG-OM), LAAE #[address] Dorian Swenson MD. on 03/29/25
-MV CAD
-HTN/HLD
-H/o Gout
-Former tobacco abuse since 2021
-ADHD
-GERD
-Hepatitis EBV 1973
-H/o rheumatoid fever as a child
-Morbidly obese with BMI 30.6
-Osteoarthritis
-Post operative acute blood loss anemia
-Post operative hyperkalemia-resolved
-Post operative emesis with extubation
Subjective
Procedure
s/p CABG x3 (LOPEZ-LAD, SVG-Diag, SVG-OM), LAAE #[address] Dorian Swenson MD. on 03/29/25
-
Date of Service: March 31, 2025
Objective Data
-
Lab Results
03/31/25 04:15
03/31/25 04:15
PT 18.7 Sec (11.4-14.6) H 03/29/25 11:15
INR 1.53 03/29/25 11:15
APTT 28.8 Sec (23.4-35.0) 03/29/25 11:15
Vital Signs
Vital Signs
Temp Pulse Resp BP Pulse Ox
99.3 F 78 16 138/70 97
08/10/25 04:06 03/31/25 04:06 03/31/25 04:06 03/31/25 04:06 03/31/25 04:06
CT Intake/Output/Weight
03/30/25 03/30/25 03/31/25
06:59 18:59 06:59
Intake Total 513.8 / 998.0 1539.3 / 1639.3 100 / 1639.3
Output Total 735 / 2175 205 / 2145 194 / 214
Balance -221.2 / -1177.0 1334.3 / -505.7 -1840 / -505.7
SaO2: 97
Physical Exam
-
General: Awake, Oriented and AOx3
Cardiovascular: Regular rate & rhythm, No Murmurs and No Rub
Respiratory: Clear and Equal
Sternum: Stable
Incision: Clean, Dry and Intact
Extremities: No Edema and No Erythema
Data Reviewed
-
Lab Results: Results Reviewed
Medications: Active Meds Reviewed
Chest X-Ray: Report Reviewed
ECG: Report Reviewed
[2025-03-31] MEDS: TYLENOL 1000 MG PO ×3 (06:07→22:26)
[2025-03-31] MEDS: LOW STRENGTH ASPIRIN 81 MG PO (07:59)
[2025-03-31] MEDS: PLAVIX 75 MG PO (07:59)
[2025-03-31] MEDS: SENOKOT-S 1 TABLET PO ×2 (07:59→20:12)
[2025-03-31] MEDS: LIPITOR 80 MG PO (07:59)
[2025-03-31] MEDS: NEURONTIN 100 MG PO ×3 (08:00→22:26)
[2025-03-31] MEDS: LOPRESSOR 25 MG PO (08:00)
[2025-03-31] MEDS: PACERONE 200 MG PO ×3 (08:00→22:26)
[2025-03-31] MEDS: PROTONIX 40 MG PO (08:00)
--- NOTE | 2025-03-31 08:00 | PTCARENOTE ---
Patient received from director of rehabilitation and wellness RN; AAOx3, responds spontaneously to RN and follows commands; NSR on monitor; VSS; Rub present; Epicardial V wires present with settings VVI 50/5.0/5.0; +1 B/L UE edema and trace B/L LE edema present; +2 DP and
radial pulses present; Lungs diminished at bases; CTx2 to -20 cm wall suction draining serosanguineous drainage - no air leak, tidaling, or crepitus noted; Patient passing gas; Patient urinating clear, yellow urine in bathroom; Sternal incision
glued, approximated, and JOSY, right groin puncture glued, approximated, and POOL LIFEGUARD, right leg incision JOSY; RIJ Cordis with KVO infusing; #18 PIV present in left forearm; see nursing documentation for further details.
[2025-03-31] MEDS: BACTROBAN 2% OINTMENT 1 APPLIC NASAL ×2 (08:01→20:12)
[2025-03-31] MEDS: LIDOCAINE 4% PATCH 1 PATCH TOPICAL (08:01)
[2025-03-31] MEDS: MAGNESIUM OXIDE 500 MG PO ×2 (08:02→20:12)
--- NOTE | 2025-03-31 12:00 | PTCARENOTE ---
Epicardial V-wire pulled at bedside by KUNAL Ortega; Mediastinal chest tubes pulled 1 hour after epicardial V-wire removal; No complications noted and VSS; Patient on bedrest for 1 hour following epicardial V-wire removal; Patient ambulating in
hallways with RN
--- NOTE | 2025-03-31 12:52 | W.PN.CARDCBS ---
Today's Communication / Plan
-
Recovering very well status post coronary bypass grafting surgery.
Continue postop care.
Anticipated discharge tomorrow.
Impression / Plan
-
PCP: Dr. Hickey
Cardiology: Dr. CHRISTIAN Medina
Impression:
CAD
s/p CABG x 3 (LOPEZ to LAD, RSVG to high diagonal, RSVG to largest OM graft/LPL), MARINA clip 03/29/2025
Hypertension
Hyperlipidemia
h/o gout
Former tobacco abuse
GERD
Plan:
MV CAD with significant left main disease by cardiac catheterization 02/19/2025
-He is postop day 2 s/p CABG x 3 (In situ LOPEZ to LAD, Ao to RSVG to high diagonal, Ao to RSVG to largest OM graft/LPL) 03/29/[address] Swenson
-He is doing well. Remains hemodynamically stable. No pressors. Wires and drains out. Continue usual postop care.
-EKG 03/30/25 is stable personally reviewed by me. ST segment elevations observed on 03/29/2025 ECG have resolved. Also no clinical signs or symptoms to suggest pericarditis.
-Overall stable on telemetry without arrhythmia
-Continue aspirin, Plavix, and statin.
-Continue amiodarone and metoprolol
-Per op report, at the end of procedure (MARINA clip) his MARINA was verified to be free of any thrombus or debris and was found be totally occlusive with no residual flow.
Progress Note - Stoneworking Sander
Subjective
Date of Service: March 31, 2025
He denies chest pain shortness of breath palpitations or dizziness.
Objective
Labs:
03/31/25 04:15
03/31/25 04:15
Labs
Hgb 8.8 g/dL (13.0-18.0) L 03/31/25 04:15
Hct 25.1 % (39.0-52.0) L 03/31/25 04:15
Plt Count 113 10^3/uL (130-400) L 03/31/25 04:15
PT 18.7 Sec (11.4-14.6) H 03/29/25 11:15
INR 1.53 03/29/25 11:15
APTT 28.8 Sec (23.4-35.0) 03/29/25 11:15
Sodium 134 mmol/L (135-145) L 03/31/25 04:15
Potassium 4.4 mmol/L (3.5-5.1) 03/31/25 04:15
BUN 27 mg/dl (9-20) H 03/31/25 04:15
Creatinine 1.3 mg/dL (0.7-1.3) 03/31/25 04:15
Glucose 123 mg/dl (70-99) H 03/31/25 04:15
Vital Signs and I&O:
Vital Signs
Temp Pulse Resp BP Pulse Ox
98.7 F 72 16 136/81 97
03/31/25 11:49 03/31/25 11:49 03/31/25 11:49 03/31/25 11:49 03/31/25 11:49
Vital Signs
Temp Pulse Resp BP Pulse Ox
98.7 F 72 16 136/81 97
03/31/25 11:49 03/31/25 11:49 03/31/25 11:49 03/31/25 11:49 03/31/25 11:49
Intake & Output
03/29/25 03/30/25 03/31/25 04/01/25
06:59 06:59 06:59 06:59
Intake Total 971.9 / 998.0 1649.3 / 1649.3
Output Total 2140 / 2175 2175 / 2175
Balance -1168.1 / -1177.0 -525.7 / -525.7 0 / 0
Physical Exam
Physical Exam
General: Well developed, well nourished in NAD.
Heart: Normal S1 and S2, no S3 no S4 there is a grade 1/6 apical holosystolic murmur, no rubs.
Lungs: Clear to auscultation bilaterally
Extremities: And trace edema noted
Neuro: Grossly nonfocal, awake, alert and oriented x3.
[2025-03-31] MEDS: FERRLECIT 110 MG IV (14:28)
[2025-03-31] MEDS: MILK OF MAGNESIA 30 ML PO (16:47)
--- NOTE | 2025-03-31 17:22 | PTCARENOTE ---
Patient took CHG shower; PRN Milk of Magnesia given for constipation
[2025-03-31] MEDS: REMOVE LIDOCAINE PATCH 1 PATCH REMOVE (20:12)
[2025-03-31] MEDS: LOPRESSOR 50 MG PO (20:12)
--- NOTE | 2025-03-31 20:30 | PTCARENOTE ---
Assumed care of pt from dayshift RN. Walking rounds completed. SR on the tele monitor. HR 70s. BP stable. Palpable pulses throughout. Trace B/L LE and +1 B/L UE edema present. Pt is 95% on RA. Lung sounds diminished in B/L bases. Deep breathing and
IS encouraged. Abdomen nontender. +BSx4. Pt voiding w/o issue. All surgical sites stable. No c/o pain at this time. Pt OOB or chair w/ stand-by assist. See worklist for full nursing assessment and interventions. Call chaidez within reach.
[2025-04-01] VITALS (13 sets, daily range): BP systolic 95–158; BP diastolic 55–117; PULSE 61; O2SAT 98; BMI 31.0
--- NOTE | 2025-04-01 00:43 | PTCARENOTE ---
No change in assessment. VSS. Pt OOB w/ minimal assist to void and then repositioned back into bed. Denies pain at this time. Call chaidez within reach.
[2025-04-01 03:39] LABS: Hematocrit 25.1 % (39.0-52.0); Hemoglobin 8.7 g/dL (13.0-18.0); Mean Corp Hgb Conc. 34.7 g/dL (33.0-37.0); Mean Corpuscular Volume 89.0 fL (80.0-94.0); Platelet Count 118 10^3/uL (130-400); Red Cell Dist. Width 12.5 % (11.5-14.5)
--- NOTE | 2025-04-01 03:56 | PTCARENOTE ---
No acute changes in assessment. Pt is SR to sinus crystal on the tele monitor. HR 59-60s. BP stable. Pt on RA. POX 95%. All surgical sites stable. Pt OOB to void then repositioned back into bed. Denies pain at this time. Labs drawn and sent. Call chaidez
within reach.
[2025-04-01 04:07] LABS: Blood Urea Nitrogen 28 mg/dl (9-20); Calcium 8.6 mg/dl (8.4-10.2); Carbon Dioxide 29 mmol/L (22-30); Chloride 106 mmol/L (98-107); Estimated Creatinine Clearance 63 ml/min; Glucose 113 mg/dl (70-99); Magnesium 2.5 mg/dl (1.6-2.3); Potassium 4.5 mmol/L (3.5-5.1); Sodium 137 mmol/L (135-145); eGFR 58.73
--- NOTE | 2025-04-01 05:29 | W.PN.CT ---
Today's Communication / Plan
-
POD #3
-CTs and PW removed yesterday without incident
-Cont ASA 81, Lipitor 80, Plavix 75, Lopressor increased to 50 mg
-multimodal pain management
-OOB/IS use reinforced
-Dispo planning
Assessment / Plan
-
s/p CABG x3 (LOPEZ-LAD, SVG-Diag, SVG-OM), LAAE #[address] Dorian Swenson MD. on 03/29/25
-MV CAD
-HTN/HLD
-H/o Gout
-Former tobacco abuse since 2021
-ADHD
-GERD
-Hepatitis EBV 1972
-H/o rheumatoid fever as a child
-Morbidly obese with BMI 30.6
-Osteoarthritis
-Post operative acute blood loss anemia
-Post operative hyperkalemia-resolved
-Post operative emesis with extubation
Subjective
Procedure
s/p CABG x3 (LOPEZ-LAD, SVG-Diag, SVG-OM), LAAE #[address] Dorian Swenson MD. on 03/29/25
-
Date of Service: April 01, 2025
Objective Data
-
Lab Results
04/01/25 03:30
04/01/25 03:30
PT 18.7 Sec (11.4-14.6) H 03/29/25 11:15
INR 1.53 03/29/25 11:15
APTT 28.8 Sec (23.4-35.0) 03/29/25 11:15
Vital Signs
Vital Signs
Temp Pulse Resp BP Pulse Ox
98.5 F 64 16 136/67 95
04/01/25 03:23 04/01/25 04:00 04/01/25 03:23 04/01/25 03:23 04/01/25 03:23
CT Intake/Output/Weight
03/31/25 03/31/25 04/01/25
06:59 18:59 06:59
Intake Total 110 / 1649.3 1120 / 1120
Output Total 1969 / 2174
Balance -1860 / -525.7 1110 / 1110
SaO2: 95
Physical Exam
-
General: Awake and Oriented
Cardiovascular: Regular rate & rhythm, No Murmurs and No Rub
Respiratory: Clear and Equal
Sternum: Stable
Incision: Clean and Intact
Extremities: No Edema and No Erythema
Data Reviewed
-
Lab Results: Results Reviewed
Medications: Active Meds Reviewed
Chest X-Ray: Report Reviewed
ECG: Report Reviewed
[2025-04-01] MEDS: TYLENOL 1000 MG PO ×2 (06:01→19:22)
[2025-04-01] MEDS: LIDOCAINE 4% PATCH TOPICAL (06:54)
[2025-04-01] MEDS: MAGNESIUM OXIDE PO (06:55)
--- NOTE | 2025-04-01 08:00 | PTCARENOTE ---
Patient received from production shift supervisor RN; AAOx3, responds spontaneously to RN and follows commands; NSR on monitor; VSS; Rub present; +1 B/L UE edema and trace B/L LE edema present; +2 DP and radial pulses present; Lungs clear; IS 2000 ml; Patient
complaining of constipation - refusing PRN laxatives/suppositories at this time; Patient urinating clear, yellow urine in bathroom; Sternal incision glued, approximated, and ACCESS MANAGER, right groin puncture glued, approximated, and JOSY, right leg incision
ACCESS MANAGER; RIJ Cordis present; #18 PIV present in left forearm; see nursing documentation for further details
[2025-04-01] MEDS: PLAVIX 75 MG PO (08:21)
[2025-04-01] MEDS: LOPRESSOR 50 MG PO ×2 (08:21→19:22)
[2025-04-01] MEDS: LIPITOR 80 MG PO (08:21)
[2025-04-01] MEDS: SENOKOT-S 1 TABLET PO ×2 (08:21→19:23)
[2025-04-01] MEDS: LOW STRENGTH ASPIRIN 81 MG PO (08:21)
[2025-04-01] MEDS: PACERONE 200 MG PO ×2 (08:21→15:15)
[2025-04-01] MEDS: NEURONTIN 100 MG PO ×2 (08:21→22:00)
[2025-04-01] MEDS: PROTONIX 40 MG PO (08:21)
[2025-04-01] MEDS: BACTROBAN 2% OINTMENT 1 APPLIC NASAL ×2 (08:22→19:23)
[2025-04-01 08:27] LABS: ACT+ - POC > 1003 Seconds (82-134)
[2025-04-01 08:27] LABS: ACT+ - POC > 1003 Seconds (82-134)
[2025-04-01 08:27] LABS: ACT+ - POC > 1003 Seconds (82-134)
[2025-04-01] MEDS: NSS IV (08:28)
--- NOTE | 2025-04-01 11:14 | CM ---
Addendum entered by Shira Fisher 04/01/25 12:06:
[facility] can accept referral at there [place] Office.
Addendum entered by Shira Fisher 04/01/25 11:55:
[facility] decline referral. Telephone call to [facility] Liaison to make the referra. Sent referral. Awaiting decision if [facility] can accept.
Original Note:
Reviewed chart. Met with Mr. Celeste to review discharge plans. He states he feels well and maybe able to go home soon. He states prior to admission he resides in a two story home with one step to enter. He states he has a first floor set-up.
His main suite and full bathroom is on the first floor. He states prior to admission he was independent with ambulation and adls. He states he does not have any DME in the home He states he has a prescription plan. He states his son Alan will stay
with him the first night he goes home, his son can stay longer if needed. We reviewed [facility]NA Services when he goes home. He [facility] when he had his hip done. He is agreeable to [facility].
Telephone call to [facility] Intake. Reviewed referral. Sent referral. Awaiting decision if they can accept referral. Medical work-up in progress. The discharge plan is to return home with his son staying overnight with him and
[facility] to see if they can accept case when medically stable.
--- NOTE | 2025-04-01 12:00 | PTCARENOTE ---
Patient ambulating in hallways and completed stairs with cardiac rehab; RIJ Cordis removed by RN - VSS and no complications noted; 2 view CXR completed
[2025-04-01] MEDS: FERRLECIT 110 MG IV (14:22)
[2025-04-01] MEDS: TYLENOL PO (14:31)
[2025-04-01] MEDS: NEURONTIN PO (15:13)
[2025-04-01] MEDS: MILK OF MAGNESIA 30 ML PO (15:15)
--- NOTE | 2025-04-01 15:51 | W.PN.CARDCBS ---
Addendum entered and electronically signed by Sea Medina MD 04/01/25 19:54:
69-year-old man who underwent CABG x 3 with left atrial appendage clip
on March 29, 2025 postop course has been very smooth
PMH: Hypertension, hyperlipidemia, gout, history of tobacco use, GERD
Meds: Reviewed
120/63, pulse of 71, respirate 16, head neck exam unremarkable, lungs are mildly diminished at bases, regular rate and rhythm without obvious murmurs or rubs, abdomen benign, incision intact
Data reviewed
Impression: Doing very well postop day [address] of CT surgical team
Plan: Likely discharge in a.m.
Original Note:
Today's Communication / Plan
-
Continue post op care
Impression / Plan
-
PCP: Dr. Hickey
Cardiology: Dr. CHRISTIAN Medina
Impression:
CAD
s/p CABG x 3 (LOPEZ to LAD, RSVG to high diagonal, RSVG to largest OM graft/LPL), MARINA clip 03/29/2025
Hypertension
Hyperlipidemia
h/o gout
Former tobacco abuse
GERD
Plan:
-History of MV CAD with significant left main disease by cardiac catheterization 02/19/2025. s/p CABG x 3 (In situ LOPEZ to LAD, Ao to RSVG to high diagonal, Ao to RSVG to largest OM graft/LPL) 03/29/[address] Swenson
-He is POD #3. Doing well with no complaints. Ambulating without difficulty.
-BP stable. Continue metoprolol tartrate 50mg BID.
-Continue aspirin, plavix, and statin.
-No arrhythmias noted on telemetry. Continue amiodarone.
-Hgb stable at 8.7 overnight, continue to follow.
-Per op report, at the end of procedure his MARINA was verified to be free of any thrombus or debris and was found be totally occlusive with no residual flow.
-Continue post op care
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
Subjective
Date of Service: April 01, 2025
No complaints. Feeling well.
Objective
Labs:
04/01/25 03:30
04/01/25 03:30
Labs
Hgb 8.7 g/dL (13.0-18.0) L 04/01/25 03:30
Hct 25.1 % (39.0-52.0) L 04/01/25 03:30
Plt Count 118 10^3/uL (130-400) L 04/01/25 03:30
PT 18.7 Sec (11.4-14.6) H 03/29/25 11:15
INR 1.53 03/29/25 11:15
APTT 28.8 Sec (23.4-35.0) 03/29/25 11:15
Sodium 137 mmol/L (135-145) 04/01/25 03:30
Potassium 4.5 mmol/L (3.5-5.1) 04/01/25 03:30
BUN 28 mg/dl (9-20) H 04/01/25 03:30
Creatinine 1.3 mg/dL (0.7-1.3) 04/01/25 03:30
Glucose 113 mg/dl (70-99) H 04/01/25 03:30
Vital Signs and I&O:
Vital Signs
Temp Pulse Resp BP Pulse Ox
97.8 F 62 18 120/63 98
04/01/25 15:19 04/01/25 15:14 04/01/25 15:19 04/01/25 15:14 04/01/25 15:19
Vital Signs
Temp Pulse Resp BP Pulse Ox
97.8 F 62 18 120/63 98
04/01/25 15:19 04/01/25 15:14 04/01/25 15:19 04/01/25 15:14 04/01/25 15:19
Intake & Output
03/30/25 03/31/25 04/01/25 04/02/25
06:59 06:59 06:59 06:59
Intake Total 971.9 / 998.0 1649.3 / 1649.3 1120 / 1120
Output Total 2140 / 2175 2175 / 2175
Balance -1168.1 / -1177.0 -525.7 / -525.7 1110 / 1110
Physical Exam
Physical Exam
GEN: No distress, awake, alert, oriented x3
HEENT: supple, anicteric, mmm
LUNGS: CTA b/l, no wheezes/rales
CV: Reg, S1/S2, 1/6 syst murmur
EXT: No clubbing, cyanosis, or edema
NEURO: Gross non-focal
SKIN: Sternal incision well approximated
--- NOTE | 2025-04-01 16:10 | W.DCSUMMARY ---
Discharge Summary
Discharge Data
Date of Admission: 03/29/25
Date of Discharge: 04/02/25
-
Pending Results: No
Hospital Course
Primary care physician: Dr. Ganesh Hickey
Outpatient elect equip maint eng: Dr. Sea Medina
Inpatient consultants: [facility]
Procedures:
1. CABG x 3 (LOPEZ-LAD, SVG-Diag, SVG-OM) with eLAA (35 mm clip) with Dr. Dorian Swenson on 03/29/25
Primary Diagnosis:
1. Coronary artery disease with stable angina
Secondary Diagnoses:
1. Hypertension
2. Hyperlipidemia
3. Obesity
4. Gout
5. Former tobacco misuse
6. ADHD
7. Osteoarthritis status post left TABITHA (2023)
8. GERD
9. Rheumatic fever
10. Hepatitis EBV 1973
HPI: Mr. Celeste is a 69-year-old male who was referred for outpatient consultation due to his multivessel coronary disease for consideration of surgical revascularization due to complaints of fatigue, BRYANT, and stable angina. He was
recommended for elective CABG with Dr. Dorian Swenson. On 03/29/2025, he was electively admitted for a CABG x 3 with exclusion of left atrial appendage.
Hospital course: Mr. Celeste is a 69-year-old male who was referred for outpatient consultation due to his multivessel coronary disease for consideration of surgical revascularization due to complaints of fatigue, BRYANT, and stable angina. He
was recommended for elective CABG with Dr. Dorian Swenson. On 03/29/2025, he was electively admitted for a CABG x 3 with exclusion of left atrial appendage with Dr. Dorian Swenson. Please see surgeons report for complete dictation of surgery. In
progressive fashion, inotropic support, vasopressor support, central lines, chest tubes, and epicardial pacing wires were discontinued. An insulin drip was initiated following surgery and was transitioned off 24 hours after surgery. On
postoperative day 3, a two-view chest x-ray was obtained which showed trace left pleural effusion and minor atelectasis in the left lung field. Patient showered without issue. On postoperative day 4, patient was tolerating his diet, ambulating,
and hemodynamically stable for discharge. Pain was well-controlled with a regimen of Tylenol and Flexeril as needed. He was 100.4 kg upon discharge with a preoperative weight of 101.7 kg. Following surgery, he was initiated on aspirin 81 mg and
Plavix 75 mg p.o. daily. Plavix will continue for 3-months postoperatively due to vein grafts. He was initiated on a beta-elda during his admission. Valsartan was not resumed post-operatively due to soft blood pressures and uptitration of BB
for AF prophylaxis. Consideration of resumption of ARB/SUNITHA to be obtained throughout outpatient recovery. Amiodarone was initiated during surgery for A-fib prophylaxis and was discontinued upon discharge due to lack of postoperative A-fib. Patient
was discharged to home with a plan to follow-up with Dr. Swenson in 4 weeks following surgery. He was scheduled for routine follow-up with his elect equip maint eng. He was recommended to follow-up with his PCP in 4 to 6 weeks from surgery. Case management
was consulted in which he was recommended to have outpatient follow-up care with [facility].
Home medication changes:
- See medication list provided below
Discharge Plan
-
Patient Disposition: Home (Routine Discharge)
Discharge Diagnosis/Procedures: CABG x 3 (LOPEZ-LAD, SVG-OM, SVG-Diag) with MARINA clip (35 mm) with Dr. Dorian Swenson on 03/29/25
Condition: Good
Diet: Low Fat and Low Cholesterol
Activity: No strenuous activity
Driving Restrictions: Not until seen by your Dr
Bathing Restrictions: OK to Shower
Other Services: Cardiac Rehab
Wound Care: No lotions, creams, or powders on procedural sites.
Specialty Instructions: Weigh Daily- Call MD for wt gain/loss 3 lbs overnight/5 lbs in 1 week
Activity Restrictions/Additional Instructions:
ACTIVITY:
-No strenuous activity: no heavy lifting, pushing, pulling anything over 15 pounds for one month
-continue to use stairs as tolerated
DRIVING RESTRICTIONS:
-No driving for one month or until approved by your surgeon
WOUND CARE:
-Shower daily. Use soap & water.
-No lotions, creams or powders on incision area.
DIET:
-continue a low fat/low cholesterol diet.
-IF you are diabetic, continue carb controlled diet.
CARDIAC REHAB:
- Please make appointment to start in 5-6 weeks with your local hospital program. (See Cardiac Rehabilitation Discharge Booklet).
- Patient to call [facility] to set up an appointment. [phone]
SPECIALTY INSTRUCTIONS:
-Weigh yourself daily. Call your physician for any weight gain/loss of 3 lbs overnight or 5 lbs in one week.
-REPORT any clicking noise or uneven appearance of your sternum to your surgeon immediately.
-If you smoke, you are instructed to quit. The [employer] smoking hotline phone number is [phone]
Referrals:
[facility] [Outside]
Yessenia Pierce PA-C [Specified Professional Personl, Cardiology] - 05/06/25 10:20 am
Ganesh Hickey, [Family Provider, Family Practice] - in four to six weeks
Referral Note: Please make an appointment in four to six weeks.
Dorian Swenson MD [Active, Cardiac Surgery] - 04/24/25 1:15 pm
Prescriptions:
New
cyclobenzaprine 10 mg Tablet
5 mg PO Q8HPRN PRN (Reason: muscle spasm) Qty: 10 0RF
acetaminophen 325 mg Tablet
650 mg PO Q6HPRN PRN (Reason: mild pain,headache,temp >101F ) Qty: 0 0RF
sennosides-docusate sodium 8.6-50 mg Tablet
1 tab PO [id number] PRN (Reason: Constipation) Qty: 0 0RF
metoprolol succinate 100 mg Tablet Extended Release 24 Hr
100 mg PO DAILY Qty: 60 0RF
clopidogrel 75 mg Tablet
75 mg PO DAILY Qty: 90 0RF
aspirin 81 mg Tablet,Chewable
81 mg PO DAILY Qty: 0 0RF
Continued
multivitamin Tablet
1 tab PO DAILY
atorvastatin 80 mg Tablet
80 mg PO DAILY
coenzyme Q10 [CoQ-10] 100 mg Capsule
100 mg PO DAILY
omega [id number] oil [Fish Oil] 1,000 (120-180) mg Capsule
1 cap PO DAILY
omeprazole 20 mg Capsule,Delayed Release(Dr/Ec)
20 mg PO DAILY
Joint Dynamic Suppl Cap
1 cap PO DAILY
Discontinued
amlodipine 5 mg Tablet
5 mg PO DAILY
valsartan 80 mg Tablet
80 mg PO DAILY
turmeric-herbal complex no.278
1 cap PO DAILY
aspirin 325 mg Tablet
325 mg PO DAILY
Discharge Orders:
Discharge Patient (As Directed); Ordered 04/02/25
Ordered By: Luda Georges
Care Plan Goals
Care Plan Goals:
Problem: Readiness for enhanced knowledge related to diagnosis and treatment plan
Goal: Understand your diagnosis and treatment plan needs, including medications if applicable.
Instructions: Know your diagnosis, underlying causes and treatment plan options, including medications if applicable. Consult with your health care team to learn about your diagnosis and treatment plan, including medications if applicable.
Discharge Date and Time
Print Language: ISRAELI
--- NOTE | 2025-04-01 16:43 | PTCARENOTE ---
Patient ambulating in room independently; PRN Milk of Magnesia given for constipation
[2025-04-01] MEDS: MAGNESIUM OXIDE 500 MG PO (19:19)
[2025-04-01] MEDS: REMOVE LIDOCAINE PATCH 1 PATCH REMOVE (19:24)
--- NOTE | 2025-04-01 20:59 | PTCARENOTE ---
assumed care of patient @1900, Patient alert and oriented, moves all extermitites, can amubluate without assistance, walked in lewis. Tylenol given for mild generalized ache 3/10. Heartrate 55-65 normal sinus to bradycardic on monitor. Pulse
normal, trace edema, lungs clear bilateral, voiding without issue. See workflow for asseement details.
[2025-04-02 04:17] LABS: Hematocrit 25.6 % (39.0-52.0); Hemoglobin 8.9 g/dL (13.0-18.0); Mean Corp Hgb Conc. 34.8 g/dL (33.0-37.0); Mean Corpuscular Volume 88.3 fL (80.0-94.0); Platelet Count 136 10^3/uL (130-400); Red Cell Dist. Width 12.6 % (11.5-14.5)
--- NOTE | 2025-04-02 04:32 | W.PN.CT ---
Today's Communication / Plan
-
Plan:
-No major issues overnight. Hemodynamically and neurologically intact
-Off all drips
-Cont. current meds (ASA, Plavix, Toprol XL, Amiodarone, Lipitor)
-Encourage use of IS
-OOB into chair/Ambulate
-D/C home
Assessment / Plan
-
Assessment:
s/p CABG x3 (LOPEZ-LAD, SVG-Diag, SVG-OM), LAAE #[address] Dorian Swenson MD. on 03/29/25, pod#4
-MV CAD
-HTN/HLD
-H/o Gout
-Former tobacco abuse since 2021
-ADHD
-GERD
-Hepatitis EBV 1973
-H/o rheumatoid fever as a child
-Morbidly obese with BMI 30.6
-Osteoarthritis
-Post operative acute blood loss anemia
-Post operative hyperkalemia-resolved
-Post operative emesis with extubation
Discussed patient care with: Cardiology, Nursing, Respiratory Therapy, Pharmacy and Care Team
Subjective
Procedure
s/p CABG x3 (LOPEZ-LAD, SVG-Diag, SVG-OM), LAAE #[address] Dorian Swenson MD. on 03/29/25
-
Date of Service: April 02, 2025
Pt c/o incisional pain, otherwise feels well. Ambulating halls without difficulty
Objective Data
-
Lab Results
04/02/25 03:27
PT 18.7 Sec (11.4-14.6) H 03/29/25 11:15
INR 1.53 03/29/25 11:15
APTT 28.8 Sec (23.4-35.0) 03/29/25 11:15
Vital Signs
Vital Signs
Temp Pulse Resp BP Pulse Ox
97.8 F 55 16 158/62 95
04/01/25 19:26 04/01/25 21:00 04/01/25 19:26 04/01/25 19:22 04/02/25 04:21
CT Intake/Output/Weight
04/01/25 04/01/25 04/02/25
06:59 18:59 06:59
Intake Total 125 / 125
Balance 125 / 125
SaO2: 95 (RA)
Physical Exam
-
General: Awake, Oriented and AOx3
Cardiovascular: Regular rate & rhythm, No Murmurs, No Rub and No Gallop
Respiratory: Decreased Breath Sounds (at bases, otherwise clear)
Sternum: Stable
Incision: Clean, Dry, Intact and Dressing Intact
Extremities: Other (+trace edema)
Data Reviewed
-
Lab Results: Results Reviewed
Medications: Active Meds Reviewed
Chest X-Ray: Report Reviewed and Image Reviewed
ECG: Report Reviewed and Image Reviewed
[2025-04-02 04:35] LABS: Blood Urea Nitrogen 26 mg/dl (9-20); Calcium 8.5 mg/dl (8.4-10.2); Carbon Dioxide 26 mmol/L (22-30); Chloride 107 mmol/L (98-107); Estimated Creatinine Clearance 68 ml/min; Glucose 97 mg/dl (70-99); Magnesium 2.6 mg/dl (1.6-2.3); Potassium 4.7 mmol/L (3.5-5.1); Sodium 137 mmol/L (135-145); eGFR > 60.00
[2025-04-02 05:40] VITALS: BP 124/65
[2025-04-02 05:43] VITALS: BMI 30.9
[2025-04-02 05:44] VITALS: BP 124/65
[2025-04-02] MEDS: TYLENOL 1000 MG PO (05:48)
--- NOTE | 2025-04-02 08:00 | PTCARENOTE ---
pt received from previous RN, oriented. SR on the monitor, HR 60-70s. SBP 120s. palpable pulses. pt on RA, 97% POX. lungs clear. IS encouraged. pt abdomen s/n, denies n/v. +BS. pt c/o constipation, Dulcolax PO ordered by MATERNITY FLOOR SUPERVISOR. diet tolerated. voids.
pt ambulates independently. sternal incision JOSY, chest tube site intact. R groin puncture ESTATE PL[employer]ING [employer]. RLE incision JOSY, approximated. PIV. see worklist for VS, I&O, and assessment.
[2025-04-02 08:01] VITALS: BP 128/60
[2025-04-02] MEDS: LIDOCAINE 4% PATCH TOPICAL (08:17)
[2025-04-02] MEDS: LIPITOR 80 MG PO (08:39)
[2025-04-02] MEDS: LOW STRENGTH ASPIRIN 81 MG PO (08:39)
[2025-04-02] MEDS: TOPROL XL 100 MG PO (08:40)
[2025-04-02] MEDS: SENOKOT-S 1 TABLET PO (08:40)
[2025-04-02] MEDS: PACERONE 200 MG PO (08:40)
[2025-04-02] MEDS: PLAVIX 75 MG PO (08:40)
[2025-04-02] MEDS: PROTONIX 40 MG PO (08:40)
[2025-04-02] MEDS: NEURONTIN 100 MG PO (08:40)
[2025-04-02] MEDS: DULCOLAX 10 MG PO (08:40)
[2025-04-02] MEDS: BACTROBAN 2% OINTMENT 1 APPLIC NASAL (08:42)
--- NOTE | 2025-04-02 09:51 | CM ---
Reviewed chart. Met with Mr. Celeste to review discharge plans. [facility] He is agreeable to [facility] to update her on discharge date. Prior to admission he
resides alone in a two story home with one step to enter. He has a first floor set-up. Prior to admission he was independent with ambulation and adls He does not have any DME in the home. He has a prescription plan. His son will stay the night
with him. His son can stay longer if needed. Medical work-up in progress. The discharge plan is to return home with his son spending the night and [facility] when medically stable.
[2025-04-02] MEDS: NSS IV (10:10)
--- NOTE | 2025-04-02 10:45 | PTCARENOTE ---
pt discharged home, discharge instructions reviewed. home meds reviewed. questions answered. IV and tele dc'd. pt showered, dressed self. pt left w/ all belongings by wheelchair.
== END 2025-04-02 10:45 | disposition home health service (06) | DRG 236 ==
LOC: CVICU 04:35
PROVIDERS: Physician Assistant Surgical; ADMITTING PHYSICIAN Thoracic Surgery (Cardiothoracic Vascular Surgery); CONSULT PHYSICIAN Internal Medicine Critical Care Medicine; FAMILY PHYSICIAN Family Medicine
PROC: 02100Z9 Bypass Coronary Artery, One Artery from Left Internal Mammary, Open Approach (ICD-10-PCS; 2025-03-29)
PROC: 06BP4ZZ Excision of Right Saphenous Vein, Percutaneous Endoscopic Approach (ICD-10-PCS; 2025-03-29)
PROC: 02L70CK Occlusion of Left Atrial Appendage with Extraluminal Device, Open Approach (ICD-10-PCS; 2025-03-29)
PROC: B24BZZ4 Ultrasonography of Heart with Aorta, Transesophageal (ICD-10-PCS; 2025-03-29)
PROC: 5A09357 Assistance with Respiratory Ventilation, Less than 24 Consecutive Hours, Continuous Positive Airway Pressure (ICD-10-PCS; 2025-03-29)
PROC: 021109W Bypass Coronary Artery, Two Arteries from Aorta with Autologous Venous Tissue, Open Approach (ICD-10-PCS; 2025-03-29)
PROC: 5A1221Z Performance of Cardiac Output, Continuous (ICD-10-PCS; 2025-03-29)
DX: I25.118 Atherosclerotic heart disease of native coronary artery with other forms of angina pectoris (principal); D62 Acute posthemorrhagic anemia; I10 Essential (primary) hypertension; E78.00 Pure hypercholesterolemia, unspecified; E66.01 Morbid (severe) obesity due to excess calories; F90.9 Attention-deficit hyperactivity disorder, unspecified type; M19.90 Unspecified osteoarthritis, unspecified site; M10.9 Gout, unspecified; L80 Vitiligo; K21.9 Gastro-esophageal reflux disease without esophagitis; E87.5 Hyperkalemia; Z68.30 Body mass index [BMI] 30.0-30.9, adult; Z79.82 Long term (current) use of aspirin; Z79.899 Other long term (current) drug therapy; Z82.49 Family history of ischemic heart disease and other diseases of the circulatory system; Z86.19 Personal history of other infectious and parasitic diseases; Z87.891 Personal history of nicotine dependence
CPT/HCPCS: 36415; 71045; 71046; 80048; 80053; 81003; 82248; 82330; 82565; 82805; 82947; 82962; 83036; 83735; 84132; 84302; 84520; 85014; 85018; 85027; 85049; 85610; 85730; 86803; 86850; 86900; 86901; 86920; 87070; 93005; 93880; 94002; 94640; 94660; J2916

== ENCOUNTER 2025-07-15 06:28 | Day surgery (SDC) | payer MEDICARE, OTHER, SELFPAY | END 2025-07-15 14:10 | disposition home or self-care (01) | LOC: GI 06:28 | PROVIDERS: ATTENDING PHYSICIAN Student in an Organized Health Care Education/Training Program | DX: Z12.11 Encounter for screening for malignant neoplasm of colon (principal); R12 Heartburn; K22.89 Other specified disease of esophagus; K44.9 Diaphragmatic hernia without obstruction or gangrene; K29.70 Gastritis, unspecified, without bleeding; K31.89 Other diseases of stomach and duodenum; D12.4 Benign neoplasm of descending colon; D12.3 Benign neoplasm of transverse colon; D12.0 Benign neoplasm of cecum; D12.2 Benign neoplasm of ascending colon; K63.5 Polyp of colon; K51.40 Inflammatory polyps of colon without complications; K31.A11 Gastric intestinal metaplasia without dysplasia, involving the antrum; K22.70 Barrett's esophagus without dysplasia; Z86.0101 Personal history of adenomatous and serrated colon polyps; Z13.810 Encounter for screening for upper gastrointestinal disorder | CPT/HCPCS: 45385; 43239; 88305; 88342 ==